=== PATIENT | male | born 1945 | race Caucasian/White ===

== ENCOUNTER → 2024-06-07 | Emergency (ER) | payer BC, MEDICARE ==
[~2024-06-07] VITALS: Ht 175.3 cm; Wt 74.8 kg
[~2024-06-07] MED LIST: ALBU8.5H8 IH; ALEN70TA80 PO; ALLO100T PO; AMAN100T PO; ASPI-1169 PO; ATOR10TA PO; CALC-34 PO; CARB1TAB24 PO; CARB25TA3 PO; CLON0.1T PO; ERGO500093 PO; FOLI0.8C PO; LISI20TA30 PO; MELA10TA7 PO; METF-440 PO; NIAC-47 PO; ONDANSETRON HCL/PF 4 MG/2 ML VIAL ONE; PANTOPRAZOLE 40 MG VIAL ONE; RASA1TAB PO; SODIUM ZIRCONIUM CYCLOSILICATE 5 GM POWD.PACK ONE; SULF-11 PO; TAMS-12 PO; TRAZ-257 PO; VITA1TAB56 PO
[2024-06-07] MEDS: IV NS 0.9% 1,000 ML BAG IV ONE ×2 (15:35→16:45)
[2024-06-07] MEDS: ONDANSETRON HCL/PF 4 MG/2 ML VIAL IVP ONE (15:36)
[2024-06-07 15:39] LABS: BASOPHILS % (AUTO) 0.1 % (0.0-2.0); EOSINOPHILS # (AUTO) 0.1 K/uL (0.0-0.7); EOSINOPHILS % (AUTO) 0.6 % (0.0-6.0); HEMATOCRIT 41 % (39-51); HEMOGLOBIN 13.8 g/dL (13.5-17.5); LYMPHOCYTES # (AUTO) 0.1 K/uL (0.8-4.8); MEAN CORPUSCULAR HEMOGLOBIN 33 PG (26.0-33.0); MEAN CORPUSCULAR HGB CONC 34 g/dl (31.0-36.0); MEAN CORPUSCULAR VOLUME 98 fL (80-96); MONOCYTES # (AUTO) 0.3 K/uL (0.1-1.30); MONOCYTES % (AUTO) 3.8 % (2.0-12.0); NEUTROPHILS % (AUTO) 94.5 % (43.0-81.0); PLATELET COUNT (AUTO) 167 K/uL (150-450); RED BLOOD CELL COUNT(AUTO) 4.14 MIL/uL (4.5-6.0); RED CELL DISTRIBUTION WIDTH 14.1 % (11.5-15.0); WHITE BLOOD COUNT (AUTO) 8.5 K/uL (4.3-11.0)
[2024-06-07] MEDS: PANTOPRAZOLE 40 MG VIAL IV ONE (15:42)
[2024-06-07 15:53] LABS: ALANINE AMINOTRANSFERASE 18 U/L (12-78); ALBUMIN 3.5 g/dL (3.4-5.0); ALKALINE PHOSPHATASE 55 U/L (46-116); ASPARTATE AMINOTRANSFERASE 20 U/L (15-37); BILIRUBIN,DIRECT 0.1 mg/dL (0.0-0.2); BILIRUBIN,TOTAL 0.6 mg/dL (0.2-1.0); CARBON DIOXIDE 30 mmol/L (21-32); CHLORIDE 106 mmol/L (98-107); CREATININE 1.7 mg/dL (0.6-1.3); GLUCOSE 202 mg/dL (74-106); LIPASE 39 U/L (16-77); POTASSIUM 5.9 mmol/L (3.5-5.1); SODIUM SERUM 140 mmol/L (136-145); TOTAL PROTEIN, SERUM 6.5 g/dL (6.4-8.2); UREA NITROGEN, BLOOD 53 mg/dL (7-18)
[2024-06-07 15:55] LABS: CALCIUM, SERUM 8.7 mg/dL (8.5-10.1)
[2024-06-07] MEDS: SODIUM ZIRCONIUM CYCLOSILICATE 5 GM POWD.PACK PO ONE (16:42)
[2024-06-07 17:23] VITALS: BP 122/60; TEMP 98.3; O2SAT 97
== END | disposition short-term general hospital (02) ==
LOC: ER 14:55 → TELE 17:09 → UNDOADMIN 17:09
DX: N17.9 Acute kidney failure, unspecified (principal); E86.0 Dehydration; R11.10 Vomiting, unspecified; E11.9 Type 2 diabetes mellitus without complications; I10 Essential (primary) hypertension; E87.5 Hyperkalemia; G20.A1 Parkinson's disease without dyskinesia, without mention of fluctuations; R07.9 Chest pain, unspecified; R06.00 Dyspnea, unspecified; R10.9 Unspecified abdominal pain
CPT/HCPCS: 99285; 74176; 96374; 96361; 71045; 96375; 93005; 85025; 80048; 83690; 80076; 36415; J2405; J7030 ×2; J2470; G0378

== ENCOUNTER 2025-01-20 21:41 | Emergency (ER) | payer MEDICARE ==
[~2025-01-20] VITALS: Ht 154.9 cm; Wt 59.0 kg
[~2025-01-20 21:41] MED LIST changes: -AMAN100T PO; -CARB25TA3 PO; -ONDANSETRON HCL/PF 4 MG/2 ML VIAL ONE; -PANTOPRAZOLE 40 MG VIAL ONE; -SODIUM ZIRCONIUM CYCLOSILICATE 5 GM POWD.PACK ONE
[2025-01-21 00:57] VITALS: BP 121/67; TEMP 98; O2SAT 98
== END 2025-01-21 00:58 ==
LOC: ER 21:56
DX: R04.0 Epistaxis (principal); G20.A1 Parkinson's disease without dyskinesia, without mention of fluctuations; E11.9 Type 2 diabetes mellitus without complications; Z79.82 Long term (current) use of aspirin; Z79.84 Long term (current) use of oral hypoglycemic drugs; Z79.899 Other long term (current) drug therapy; W18.39XA Other fall on same level, initial encounter; Y93.89 Activity, other specified; Y92.89 Other specified places as the place of occurrence of the external cause; Y99.8 Other external cause status
CPT/HCPCS: 70450-TC; 70486-TC; 82962-TC